=== PATIENT | female | born 1950 | race Caucasian/White ===

== ENCOUNTER 2018-12-10 11:26 | Outpatient (REF) | payer OTHER, SELFPAY ==
[2018-12-10 22:00] LABS: Glucose 108 mg/dL (70-100)
== END 2018-12-10 11:46 ==
LOC: NCHCN 11:26
PROVIDERS: PCP Internal Medicine; Visit Provider Internal Medicine
DX: R73.09 Other abnormal glucose (principal)
CPT/HCPCS: 82947

== ENCOUNTER 2019-09-18 17:13 | Outpatient (REF) | payer OTHER, SELFPAY ==
[2019-09-18 20:08] LABS: HCT 43.2 % (36.0-46.0); HGB 14.4 g/dL (12.0-15.5); Mean Corp. HGB Concentration 33.3 g/dL (32.0-36.0); Mean Corpuscular Hemoglobin 30.6 pg (27.0-33.0); Mean Corpuscular Volume 91.7 fL (80-95); Mean Platelet Volume 10.4 fL (8.0-11.0); Platelet Count 311 x1000/uL (130-400); RBC 4.71 m/cumm (4.00-5.20); White Blood Cell Count 9.16 k/cumm (4.4-10.8)
[2019-09-18 20:21] LABS: Iron 50 ug/dL (50-170); Total Iron Binding Capacity 405 ug/dL (250-450); Transferrin Sat 12 % (15-50)
[2019-09-18 20:34] LABS: Anion Gap 11.8 mmol/L (3-11); BUN 19 mg/dL (7-18); CO2 25.2 mmol/L (21.0-32.0); CREATININE 0.77 mg/dL (0.55-1.02); Calcium 9.2 mg/dL (8.5-10.1); Chloride 105 mmol/L (98-107); FREE T4 0.91 ng/dL (0.76-1.46); Glucose 90 mg/dL (74-106); Potassium 4.5 mmol/L (3.5-5.1); Sodium 142 mmol/L (136-145); TSH 2.45 uIU/mL (0.36-3.74)
[2019-09-18 20:35] LABS: Hemoglobin A1C 6.1 % (3.8-5.6)
== END 2019-09-18 17:33 ==
LOC: NCHCN 17:13
PROVIDERS: PCP Internal Medicine; Visit Provider Internal Medicine
DX: R53.83 Other fatigue (principal); R73.09 Other abnormal glucose; D50.9 Iron deficiency anemia, unspecified; R40.0 Somnolence; M54.5 Low back pain
CPT/HCPCS: 80048; 85027; 83036; 83540; 83550; 84439; 84443

== ENCOUNTER 2019-09-23 08:40 | Outpatient (CLI) | payer OTHER, SELFPAY ==
--- NOTE | 2019-09-23 | DI.RAD_ITS ---
EXAM: XR LUMBAR SPINE COMPLETE CLINICAL HISTORY: CHRONIC LOW BACK PAIN, M54.5 TECHNIQUE: 2D digital imaging was performed. COMPARISON: No exams were available for comparison FINDINGS: There is a mild to moderate dextroscoliosis. No compression fractures are seen. There is narrowing of the L1-2 through L3-4 disc spaces. There are prominent facet degenerative changes seen at L4-5 and L 5-S1. Suture material and previous bowel surgery is incidentally noted. IMPRESSION: Degenerative disc changes and facet degenerative changes and mild to moderate scoliosis. DATA REPOSITORY: RADIATION DOSE DELIVERED:
== END 2019-09-23 09:00 ==
PROVIDERS: PCP Internal Medicine; Visit Provider Internal Medicine
DX: M54.5 Low back pain (principal); M51.36 Other intervertebral disc degeneration, lumbar region; M47.817 Spondylosis without myelopathy or radiculopathy, lumbosacral region
CPT/HCPCS: 72110